=== PATIENT | female | born 1955 | race Caucasian/White ===

== ENCOUNTER 2022-10-30 12:15 | Outpatient (CLI) | payer MEDICARE, SELFPAY ==
[2022-10-31 15:43] LABS: NT Pro B Type NatriureticPept* 35 PG/mL (0-125)
== END 2022-10-30 12:16 | disposition home or self-care (01) ==
PROVIDERS: PCP Physician Assistant Medical; Visit Provider Physician Assistant Medical
DX: R55 Syncope and collapse (principal)
CPT/HCPCS: 80189; 83880

== ENCOUNTER 2022-12-12 12:31 | Outpatient (CLI) | payer MEDICARE, SELFPAY ==
--- NOTE | 2022-12-12 13:00 | CRLHL7_ITS ---
For Patients: As a result of the Century Cures Act, medical imaging exams and procedure reports are released immediately into your electronic medical record. You may view this report before your referring provider. If you have questions, please contact your health care provider. BILATERAL SCREENING MAMMOGRAM WITH COMPUTER-AIDED DETECTION AND TOMOSYNTHESIS TECHNIQUE: CC and MLO views were obtained. These mammographic images have been obtained using full-field digital technique. These mammographic images were interpreted with the benefit of computer-aided detection. Breast tomosynthesis was used in this interpretation. COMPARISON FILM: 08/10/21, 05/16/20, 02/12/19. FINDINGS: There are scattered areas of fibroglandular density. IMPRESSION: There is no radiographic evidence for malignancy. ASSESSMENT: BI-RADS Category 1: Negative RECOMMENDATION: Routine screening mammogram in 1 year. A lay language report of this examination will be provided to the patient. DUSTIN WYMAN M.D. Diagnostic Radiologist [email or web address] Transcribed: 2:[address]/Dictated by: Dustin Wyman MD @ 12/13/2022 11:16:00 AM (Electronically Signed)
== END 2022-12-12 12:32 | disposition home or self-care (01) ==
PROVIDERS: PCP Physician Assistant Medical; Visit Provider Physician Assistant Medical
DX: Z12.31 Encounter for screening mammogram for malignant neoplasm of breast (principal)
CPT/HCPCS: 77063; 77067

== ENCOUNTER 2023-03-20 08:18 | Outpatient (RCR) | payer MEDICARE, SELFPAY ==
--- NOTE | 2023-03-18 08:00 | CRLHL7_ITS ---
For Patients: As a result of the Century Cures Act, medical imaging exams and procedure reports are released immediately into your electronic medical record. You may view this report before your referring provider. If you have questions, please contact your health care provider. [facility] ??? [facility] MYOCARDIAL PERFUSION SCAN, 03/20/2023 CLINICAL HISTORY: 68-year-old female. Syncope. Hypertension. Palpitations. Height 5 feet 8 inches, weight 280 pounds. TECHNIQUE: (Resting SPECT and stress gated SPECT with wall motion and ejection fraction) Stress: Pharmacologic ???regadenoson (0.4 mg IV) Dose (Stress/Rest 2-day protocol): 41.7 mCi technetium-labeled sestamibi/41.1 mCi technetium-labeled sestamibi (IV) Comparison: None FINDINGS: There is good uptake of activity by the left ventricle. No left ventricular enlargement is noted. End-diastolic volume 106 mL. End-systolic volume 32 mL. Soft tissue attenuation compatible with breast attenuation artifact. No other significant fixed or reversible defects are identified. The gated images demonstrate a normal left ventricular ejection fraction of 70%. No regional wall motion abnormalities are identified. IMPRESSION: 1) No evidence of significant myocardial ischemia or infarction. 2) Normal left ventricular ejection fraction of 70%. This study was jointly reviewed by Radiology and Cardiology. VLADIMIR FORD M.D. Diagnostic/Nuclear Medicine Radiologist [email or web address] Transcribed: 11:37 a.mBreanna BRANCH M.D. Department of Cardiology RD/Dictated by: Vladimir Ford MD @ 03/20/2023 10:22:00 AM (Electronically Signed)
[2023-03-20] MEDS: SODIUM CHLORIDE 0.9 % (FLUSH) 10 ML SYRINGE IVF (08:44)
[2023-03-20] MEDS: REGADENOSON 0.4 MG/5 ML SYRINGE IVP (08:44)
--- NOTE | 2023-03-20 09:20 | P.STN_ITS ---
Stress Test Note Date Date Seen: 03/20/23 Date of test: 03/20/23 Providers Primary care provider: Eleni Gibson Stress test physician: Lilian Cordoba Stress Test Note Stress test ordered: Lexiscan Indication for test: Syncope Stress test medicine: Lexiscan Results discussion: Resting EKG: Sinus rhythm, 73 beats per minute. T-wave abnormality without ST segment change anterior precordial leads. Resting blood pressure: 134/89 Lexiscan: Plan patient followed a nonwalking Lexiscan. Did have flipped T- waves in inferior leads and notable flipped T-waves more so in V5 V6. Patient experienced some chest heaviness and mild shortness of breath with the infusion of the regadenastron. Symptoms resolved quickly. EKG changes resolved in recovery. She had a maximal blood pressure 171/85. EKG changes were reviewed with her, these are not diagnostic of ischemia given they do not meet ST segment changes criteria. She understands that the nuclear imaging will couple this test for a full formal diagnostic and that the nuclear imaging is really the qureshi to diagnose any ischemia. Again she was asymptomatic at termination of the test. Impression: 68-year-old female with nondiagnostic EKG changes on Lexiscan. Follow up suggested: She will have her post stress test nuclear images obtained and discharge to home. She will await these images to be read to couple this test for full formal diagnostic.
[2023-03-20 10:22] VITALS: BP 146/92; PULSE 89
== END 2023-03-20 20:00 | disposition home or self-care (01) ==
LOC: STRESS 08:18
PROVIDERS: PCP Physician Assistant Medical; Visit Provider Family Medicine
DX: R55 Syncope and collapse (principal)
CPT/HCPCS: 78452; 93016; 93017; A9500; J2785

== ENCOUNTER 2023-03-24 12:43 | Outpatient (CLI) | payer MEDICARE, SELFPAY ==
--- NOTE | 2023-03-24 14:00 | CRLHL7_ITS ---
For Patients: As a result of the Cures Act, medical imaging exams and procedure reports are released immediately into your electronic medical record. You may view this report before your referring provider. If you have questions, please contact your health care provider. BILATERAL CAROTID ULTRASOUND, 03/24/2023 CLINICAL HISTORY: TECHNIQUE: The carotid circulations and the vertebral arteries in the neck were examined with wyatt-scale ultrasound, color-flow and Doppler spectral analysis. Degrees of stenosis were determined using SRU 2002 Consensus Panel Criteria. COMPARISON: None. FINDINGS: RIGHT PEAK SYSTOLIC VELOCITY Subclavian Artery: 112 Distal CCA: 54 Mid CCA: 67 Proximal ICA: 54 Mid ICA: 49 Distal ICA: 61 ICA/CCA Ratio: 1.1 Vertebral Artery: 43, antegrade LEFT PEAK SYSTOLIC VELOCITY Subclavian Artery: 92 Distal CCA: 52 Mid CCA: 76 Proximal ICA: 53 Mid ICA: 49 Distal ICA: 59 ICA/CCA Ratio: 1.1 Vertebral Artery: 39, antegrade IMPRESSION: No hemodynamically-significant stenosis within the internal carotid arteries bilaterally. MARGARITA BOWSER M.D. Diagnostic/Breast Radiologist [email or web address] Transcribed: 5:[address]/Dictated by: Margarita Bowser MD @ 03/24/2023 2:38:00 PM (Electronically Signed)
== END 2023-03-24 12:44 | disposition home or self-care (01) ==
PROVIDERS: PCP Physician Assistant Medical; Visit Provider Physician Assistant Medical
DX: R55 Syncope and collapse (principal); I51.7 Cardiomegaly; I34.0 Nonrheumatic mitral (valve) insufficiency; I10 Essential (primary) hypertension
CPT/HCPCS: 93306; 93880

== ENCOUNTER 2023-07-08 11:43 | Outpatient (CLI) | payer MEDICARE, SELFPAY | END 2023-07-08 11:44 | disposition home or self-care (01) | LOC: NFLDREF 07-09 15:17 | PROVIDERS: PCP Physician Assistant Medical; Referring Provider Physician Assistant Medical; Visit Provider Physician Assistant Medical | DX: Z79.01 Long term (current) use of anticoagulants (principal) | CPT/HCPCS: 85610 ==

== ENCOUNTER 2023-07-15 11:34 | Outpatient (CLI) | payer MEDICARE, SELFPAY | END 2023-07-15 11:35 | disposition home or self-care (01) | LOC: NFLDREF 07-17 09:16 | PROVIDERS: PCP Physician Assistant Medical; Referring Provider Physician Assistant Medical; Visit Provider Physician Assistant Medical | DX: Z79.01 Long term (current) use of anticoagulants (principal) | CPT/HCPCS: 85610 ==

== ENCOUNTER 2023-07-22 10:30 | Outpatient (CLI) | payer MEDICARE, SELFPAY | END 2023-07-22 10:31 | disposition home or self-care (01) | LOC: NFLDREF 17:32 | PROVIDERS: PCP Physician Assistant Medical; Referring Provider Physician Assistant Medical; Visit Provider Physician Assistant Medical | DX: Z79.01 Long term (current) use of anticoagulants (principal) | CPT/HCPCS: 85610 ==

== ENCOUNTER 2023-07-25 11:31 | Outpatient (CLI) | payer MEDICARE, SELFPAY | END 2023-07-25 11:32 | disposition home or self-care (01) | LOC: NFLDREF 07-28 09:27 | PROVIDERS: PCP Physician Assistant Medical; Referring Provider Physician Assistant Medical; Visit Provider Physician Assistant Medical | DX: Z79.01 Long term (current) use of anticoagulants (principal) | CPT/HCPCS: 85610 ==

== ENCOUNTER 2023-08-01 11:29 | Outpatient (CLI) | payer MEDICARE, SELFPAY | END 2023-08-01 11:30 | disposition home or self-care (01) | LOC: NFLDREF 08-03 07:48 | PROVIDERS: PCP Physician Assistant Medical; Referring Provider Physician Assistant Medical; Visit Provider Family Medicine | DX: Z79.01 Long term (current) use of anticoagulants (principal); I26.99 Other pulmonary embolism without acute cor pulmonale | CPT/HCPCS: 85610 ==

== ENCOUNTER 2023-08-11 10:58 | Outpatient (CLI) | payer MEDICARE, SELFPAY | END 2023-08-11 10:59 | disposition home or self-care (01) | LOC: NFLDREF 08-13 00:10 | PROVIDERS: PCP Physician Assistant Medical; Referring Provider Physician Assistant Medical; Visit Provider Physician Assistant Medical | DX: I26.99 Other pulmonary embolism without acute cor pulmonale (principal) | CPT/HCPCS: 85610 ==

== ENCOUNTER 2023-11-10 10:41 | Outpatient (CLI) | payer MEDICARE, SELFPAY | END 2023-11-10 10:42 | disposition home or self-care (01) | PROVIDERS: PCP Physician Assistant Medical; Visit Provider Physician Assistant Medical | DX: Z00.00 Encounter for general adult medical examination without abnormal findings (principal); I10 Essential (primary) hypertension; E66.9 Obesity, unspecified; E87.1 Hypo-osmolality and hyponatremia; Z13.6 Encounter for screening for cardiovascular disorders; Z13.29 Encounter for screening for other suspected endocrine disorder; Z79.01 Long term (current) use of anticoagulants; Z13.820 Encounter for screening for osteoporosis | CPT/HCPCS: 80053; 80061; 84439; 84443 ==

== ENCOUNTER 2024-01-02 14:00 | Outpatient (CLI) | payer MEDICARE, SELFPAY | END 2024-01-02 14:01 | disposition home or self-care (01) | PROVIDERS: PCP Physician Assistant Medical; Visit Provider Family Medicine | DX: E04.1 Nontoxic single thyroid nodule (principal); E87.1 Hypo-osmolality and hyponatremia; I10 Essential (primary) hypertension; E66.9 Obesity, unspecified; R79.89 Other specified abnormal findings of blood chemistry; M54.2 Cervicalgia | CPT/HCPCS: 80053; 84439; 84443; 84481; 86376 ==

== ENCOUNTER 2024-02-02 13:34 | Outpatient (CLI) | payer MEDICARE, SELFPAY ==
[2024-02-02 15:41] LABS: INR 2.37 (0.91-1.10); Prothrombin Time 27.7 Seconds
== END 2024-02-02 13:35 | disposition home or self-care (01) ==
LOC: US 13:35
PROVIDERS: PCP Physician Assistant Medical; Visit Provider Physician Assistant Medical
DX: M79.604 Pain in right leg (principal); M79.605 Pain in left leg; Z86.711 Personal history of pulmonary embolism; I73.9 Peripheral vascular disease, unspecified
CPT/HCPCS: 36415; 85610; 93924

== ENCOUNTER 2024-03-09 08:44 | Outpatient (CLI) | payer MEDICARE, SELFPAY ==
--- NOTE | 2024-03-09 08:45 | MM_ITS ---
Patient: VALENCIA PEÑA Facility:?[facility] Patient ID:?[id number] Site Patient ID:?[id number] Site :?[id number] Study:?XRay-Breast Bilateral 3D W/CAD-03/09/2024 9:29:59 AM Ordering Physician:Addi Final Report: BILATERAL DIGITAL SCREENING MAMMOGRAM WITH COMPUTER-AIDED DETECTION WITH TOMOSYNTHESIS CLINICAL HISTORY: Routine screening exam. COMPARISON: 12/12/2022, 08/10/2021, 05/16/2020. TECHNIQUE: Digital mammogram in CC and MLO projections including computer-aided detection (CAD) and tomosynthesis. BREAST COMPOSITION: There are scattered areas of fibroglandular density. FINDINGS: RIGHT Breast: No suspicious findings. LEFT Breast: Microcalcifications are present within lower inner quadrant 2 cm from the nipple. IMPRESSION: LEFT breast calcifications. RECOMMENDATIONS: Spot compression magnification views of the calcifications in the LEFT breast in CC and ML projections. [facility] will contact the patient. BI-RADS Category 0: Incomplete: Need additional Imaging Evaluation and/or Prior Mammograms for Comparison A lay language report of this examination will be provided to the patient. Dictated by Dustin Vila MD @ 03/09/2024 10:22:42 AM PT/Dictated by: Dustin Vila MD @ 03/09/2024 10:22:00 AM Signed by:?Dustin Vila MD @03/09/2024 1:44:01 PM (Electronic Signature)
== END 2024-03-09 08:45 | disposition home or self-care (01) ==
LOC: MAMMO 08:45
PROVIDERS: PCP Physician Assistant Medical; Visit Provider Physician Assistant Medical
DX: Z12.31 Encounter for screening mammogram for malignant neoplasm of breast (principal); R92.0 Mammographic microcalcification found on diagnostic imaging of breast
CPT/HCPCS: 77063; 77067

== ENCOUNTER 2024-03-19 09:34 | Outpatient (CLI) | payer MEDICARE, SELFPAY ==
--- NOTE | 2024-03-19 09:45 | MM_ITS ---
Patient: VALENCIA PEÑA Facility:?[facility] Patient ID:?[id number] Site Patient ID:?[id number]. Site :?[id number] Study:?XRay-Breast Left 2D w/ CAD-03/19/2024 10:30:01 AM Ordering Physician:Addi Final Report: DIGITAL DIAGNOSTIC LEFT MAMMOGRAM USING COMPUTER-AIDED DETECTION CLINICAL HISTORY: LEFT breast calcifications. COMPARISON: 08/10/2021, 12/12/2022, 03/09/2024. TECHNIQUE: Digital LEFT mammogram in three projections. Computer-aided detection utilized. BREAST COMPOSITION: There are areas of scattered fibroglandular density. FINDINGS: Additional mammogram images demonstrate clustered microcalcifications within the lower inner quadrant 3 cm from the nipple. Mild pleomorphism without layering. IMPRESSION: Indeterminate clustered microcalcifications lower inner quadrant 3 cm from the nipple. RECOMMENDATIONS: Stereotactic biopsy. Results and recommendations discussed with the patient. BI-RADS Category 4: Suspicious A lay language report of this examination will be provided to the patient. Dictated by Dustin Vila MD @ 03/19/2024 11:03:28 AM jj/Dictated by: Dustin Vila MD @ 03/19/2024 11:03:00 AM Signed by:?Dustin Vila MD @03/19/2024 12:48:14 PM (Electronic Signature)
== END 2024-03-19 09:35 | disposition home or self-care (01) ==
LOC: MAMMO 09:34
PROVIDERS: PCP Physician Assistant Medical; Visit Provider Physician Assistant Medical
DX: R92.8 Other abnormal and inconclusive findings on diagnostic imaging of breast (principal); R92.0 Mammographic microcalcification found on diagnostic imaging of breast
CPT/HCPCS: 77065; G0279

== ENCOUNTER 2024-12-28 07:35 | Outpatient (CLI) | payer MEDICARE, SELFPAY ==
[2024-12-28 14:26] VITALS: BMI 43.9
== END 2024-12-28 07:36 | disposition home or self-care (01) ==
LOC: NUTRITION 07:35
PROVIDERS: PCP Physician Assistant Medical; Visit Provider Dietitian, Registered
DX: E66.9 Obesity, unspecified (principal); Z68.41 Body mass index [BMI] 40.0-44.9, adult; Z71.3 Dietary counseling and surveillance
CPT/HCPCS: G0463

== ENCOUNTER 2025-01-11 07:21 | Outpatient (CLI) | payer MEDICARE, SELFPAY ==
[2025-01-11 13:46] VITALS: BMI 43.9
== END 2025-01-11 07:22 | disposition home or self-care (01) ==
LOC: NUTRITION 07:21
PROVIDERS: PCP Physician Assistant Medical; Visit Provider Dietitian, Registered
DX: E66.9 Obesity, unspecified (principal); Z68.41 Body mass index [BMI] 40.0-44.9, adult; Z71.3 Dietary counseling and surveillance
CPT/HCPCS: G0463

== ENCOUNTER 2025-02-22 09:05 | Outpatient (CLI) | payer MEDICARE, SELFPAY ==
--- NOTE | 2025-02-22 11:50 | W.ANESCHARGE ---
Anesthesia Charges Start Date/Time Anesthesia Start Date: 02/22/25 Anesthesia Start Time: 11:00 Stop Date/Time Anesthesia Stop Date: 02/22/25 Anesthesia Stop Time: 11:45 Summary Extremes of Age - Over 70 or under 1: MDA Coding CPT Codes CPT Codes: ANES UPR LWR GI NDSC PX - 75513 ([id number]) QK - BILINGUAL HR GENERALIST 2-4 CNCRNT ANES PROC, QX - WORK ORDER CLERK SVC W/ MD MED DIRECTION, P3 - PATIENT W/SEVERE SYS DISEASE Additional Codes: Summary - Extremes of Age - Over 70 or under 1: MDA ([id number])
--- NOTE | 2025-02-22 11:52 | W.ANESCHARGE ---
Anesthesia Charges Start Date/Time Anesthesia Start Date: 02/22/25 Anesthesia Start Time: 11:00 Stop Date/Time Anesthesia Stop Date: 02/22/25 Anesthesia Stop Time: 11:45 Coding CPT Codes CPT Codes: ANES LWR INTST NDSC NOS - 97486 ([id number]) P3 - PATIENT W/SEVERE SYS DISEASE, QK - SHEAR OPERATOR 2-4 CNCRNT ANES PROC, QX - BENZENE OPERATOR SVC W/ MD MED DIRECTION
--- NOTE | 2025-02-22 12:06 | W.ANESCHARGE ---
Anesthesia Charges Start Date/Time Anesthesia Start Date: 02/22/25 Anesthesia Start Time: 11:00 Stop Date/Time Anesthesia Stop Date: 02/22/25 Anesthesia Stop Time: 11:45 Coding CPT Codes CPT Codes: ANES UPR LWR GI NDSC PX - 81714 ([id number]) P3 - PATIENT W/SEVERE SYS DISEASE, QK - BIOMETRICS HEAD 2-4 CNCRNT ANES PROC, QX - TEACHER DANCING SVC W/ MD MED DIRECTION
== END 2025-02-22 09:06 | disposition home or self-care (01) ==
LOC: OP CLINIC 09:06
PROVIDERS: PCP Physician Assistant Medical; Visit Provider Surgery
DX: Z12.11 Encounter for screening for malignant neoplasm of colon (principal); Z86.0100 Personal history of colon polyps, unspecified; Z13.810 Encounter for screening for upper gastrointestinal disorder; K22.70 Barrett's esophagus without dysplasia; K31.7 Polyp of stomach and duodenum; K44.9 Diaphragmatic hernia without obstruction or gangrene; K22.89 Other specified disease of esophagus
CPT/HCPCS: 00811; 00813; 43239; 45378; 88305; 99100; J2704; J3490

== ENCOUNTER 2025-06-16 14:32 | Outpatient (CLI) | payer MEDICARE, SELFPAY | END 2025-06-16 14:33 | disposition home or self-care (01) | LOC: LKVREF 14:33 | PROVIDERS: PCP Physician Assistant Medical; Visit Provider Physician Assistant Medical | DX: I10 Essential (primary) hypertension (principal); E04.1 Nontoxic single thyroid nodule; R79.89 Other specified abnormal findings of blood chemistry; E66.9 Obesity, unspecified; E87.1 Hypo-osmolality and hyponatremia; Z79.01 Long term (current) use of anticoagulants | CPT/HCPCS: 80053; 80061; 84443 ==